=== PATIENT | male | born 1950 ===

== ENCOUNTER 2017-02-09 19:51 | Inpatient (IN) | payer MEDICARE ==
[~2017-02-09] VITALS: Ht 180.3 cm; Wt 63.5 kg
[2017-02-09 20:05] VITALS: BP 108/74
--- NOTE | 2017-02-09 20:05 | NUR ---
RECEIVED PATIENT FROM [facility] VIA AMBULANCE/STRETCHER. PATIENT A/O X4 WITH NO SIGNS OF PAIN, SOB, OR ACUTE DISTRESS. PT ADMIT DX TRANSIENT ISCHEMIC ATTACK. PERTINENT ASSESSMENT COMPLETED. MD JONES AWARE OF PATIENT ARRIVAL TO UNIT. MEDS RECONCILED. VITAL SIGNS STABLE AT START OF SHIFT. CALL LIGHT PLACED WITHIN REACH OF PATIENT. WILL CONTINUE TO MONITOR PATIENT THROUGH SHIFT.
[2017-02-09] MEDS ORDERED: Z GUARD REMEDY PASTE 57 GM TUBE TOP PRN (22:00)
--- NOTE | 2017-02-10 05:40 | NUR ---
PT SLEPT INTERMITTENTLY THROUGH THE SHIFT. HAD PERIODS OF INSOMNIA AND INABILITY TO SLEEP. NO SIGNS OF SOB, ACUTE DISTRESS, OR PAIN. ALL NEEDS ATTENDED TO. VITALS STABLE THROUGH SHIFT. SAFETY MEASURES IMPLEMENTED. CALL LIGHT PLACED WITHIN REACH OF PT. WILL ENDORSE TO DAY SHIFT NURSE.
[2017-02-10 06:46] LABS: HEMOGLOBIN 8.2 g/dL (12.5-16.3); MEAN CORPUSCULAR VOLUME 93.3 fL (73.0-96.2)
[2017-02-10 06:59] LABS: BASOPHILS # (AUTO) 0.1 K/uL (0.0-8.0); BASOPHILS % (AUTO) 1.6 % (0.0-2.0); EOSINOPHILS % (AUTO) 0.9 % (0.0-7.0); HEMATOCRIT 23.8 % (36.7-47.1); LYMPHOCYTES # (AUTO) 0.8 K/uL (20.0-40.0); LYMPHOCYTES % (AUTO) 20.2 % (20.5-51.5); MEAN CORPUSCULAR HEMOGLOBIN 32.4 uug (23.8-33.4); MEAN CORPUSCULAR HGB CONC 35 g/dL (32.5-36.3); MONOCYTES # (AUTO) 0.2 K/uL (2.0-10.0); MONOCYTES % (AUTO) 4.1 % (0.0-11.0); NEUTROPHILS % (AUTO) 73.2 % (38.5-71.5); RED BLOOD CELL COUNT(AUTO) 2.55 MIL/uL (4.06-5.63); WHITE BLOOD COUNT (AUTO) 4.1 K/uL (3.6-10.2)
[2017-02-10 07:06] LABS: PLATELET COUNT (AUTO) 40 K/uL (152-348)
[2017-02-10 08:14] LABS: BAND % (MANUAL) 6 % (0-10); BASOPHILS % (MANUAL) 4 % (0-2); EOSINOPHILS % (MANUAL) 1 % (0-8); LYMPHOCYTES % (MANUAL) 21 % (20-40); METAMYELOCYTES % 7 % (0-1); MONOCYTES % (MANUAL) 2 % (2-10); MYELOCYTES % 2 % (0-0); NEUTROPHILS % (MANUAL) 52 % (42-75)
[2017-02-10 08:22] LABS: BLASTS, MANUAL % 5 % (0-0)
[2017-02-10 08:33] LABS: CREATININE 1.6 mg/dL (0.6-1.3); MAGNESIUM 2.2 mg/dL (1.8-2.4); PHOSPHOROUS 4.7 mg/dL (2.5-4.9); POTASSIUM 4.9 mmol/L (3.5-5.1)
[2017-02-10] MEDS ORDERED: PRAMIPEXOLE 0.25 MG TABLET PO SCH ×3 (09:00→13:00)
[2017-02-10] MEDS ORDERED: GABAPENTIN 100 MG CAPSULE PO SCH ×3 (09:00→21:00)
[2017-02-10] MEDS ORDERED: METOPROLOL SUCCINATE XL 25 MG TAB.SR.24H PO SCH ×2 (09:00)
[2017-02-10] MEDS ORDERED: CARBIDOPA/LEVODOPA 25-100MG TABLET PO SCH (09:00)
[2017-02-10] MEDS ORDERED: ENTACAPONE 200 MG TABLET PO SCH (09:00)
[2017-02-10] MEDS ORDERED: FOLIC ACID 1 MG TABLET PO SCH (09:00)
[2017-02-10] MEDS: ASPIRIN EC 81 MG TABLET.DR PO SCH (09:00)
[2017-02-10] MEDS ORDERED: CHOLECALCIFEROL 1,000 UNIT TABLET PO SCH (09:00)
[2017-02-10 09:28] VITALS: BP 103/63
[2017-02-10] MEDS ORDERED: MELA5TAB PO (09:51)
[2017-02-10] MEDS ORDERED: MIRT15TA PO (09:51)
[2017-02-10] MEDS ORDERED: CARB-93 PO ×2 (09:51)
[2017-02-10] MEDS ORDERED: GABA-532 PO ×2 (09:51)
[2017-02-10] MEDS ORDERED: ATOR10TA PO (09:51)
[2017-02-10] MEDS ORDERED: FEBU40TA PO (09:51)
[2017-02-10] MEDS ORDERED: FOLI1TAB16 PO (09:51)
[2017-02-10] MEDS ORDERED: PRAM0.253 PO (09:51)
[2017-02-10] MEDS ORDERED: CHOL10002 PO (09:51)
[2017-02-10] MEDS ORDERED: METO50TA7 PO (09:51)
[2017-02-10] MEDS ORDERED: RUXO5TAB PO (09:51)
[2017-02-10] MEDS ORDERED: ENTA200T PO (09:51)
[2017-02-10] MEDS ORDERED: ASPI-605 PO (09:51)
[2017-02-10] MEDS ORDERED: [UNRECOGNIZED DRUG - CODE] PO (09:51)
[2017-02-10] MEDS ORDERED: CARB-95 PO (09:56)
[2017-02-10] MEDS ORDERED: ATORVASTATIN 10 MG TABLET PO PRN (10:00)
[2017-02-10] MEDS: METOPROLOL SUCCINATE XL 50 MG TAB.SR.24H PO SCH (10:11)
[2017-02-10] MEDS: CHOLECALCIFEROL 1,000 UNIT TABLET PO SCH (10:23)
[2017-02-10] MEDS: FOLIC ACID 1 MG TABLET PO SCH (10:23)
[2017-02-10] MEDS: ENTACAPONE 200 MG TABLET PO SCH ×3 (10:23→16:05)
[2017-02-10] MEDS: CARBIDOPA/LEVODOPA 25-100MG TABLET PO SCH ×3 (10:25→16:06)
[2017-02-10] MEDS: GABAPENTIN 100 MG CAPSULE PO SCH ×2 (10:25→20:28)
[2017-02-10] MEDS ORDERED: PRAM0.75 PO (10:50)
[2017-02-10] MEDS: PRAMIPEXOLE 0.25 MG TABLET PO SCH ×3 (11:04→16:05)
--- NOTE | 2017-02-10 13:22 | NUR ---
pt seen on rounding. pt has very specific meds taken at very specific times. pt had low bp. witheld all bp medications. pt tolerates room air. pt had no signs of aspirations when taking drugs. pt continues to be alert and oriented. pt is mod to min assist on tranfers with unsteady gait. pt uses urinal to void. pt had home medications sent to pharmacy. pt instructed to bring home medication not available in pharmacy. pt felt weak during lunchtime assessed bp. pt had decreased bp on the 80s, encouraged pt to drink fluids. will reasssess
--- NOTE | 2017-02-10 18:32 | NUR ---
pt has list of medications placed on chart. pharmacy has a copy. pt instructed to bring home med from home. pt understands. pt pillboxes sent to pharmacy. pt stable throughout the day. no aspirations noted. pt had low blood pressure but no sob or distress noted. pt sat on wheelchair interminently. will endorse to [facility] shift [facility] nurse.
[2017-02-10] MEDS: CARBIDOPA/LEVODOPA CR 25-100MG TABLET.SA PO SCH (20:27)
[2017-02-10] MEDS: MELATONIN 3 MG TABLET PO SCH (20:27)
[2017-02-10] MEDS: ATORVASTATIN 10 MG TABLET PO SCH (20:27)
[2017-02-10] MEDS: MIRTAZAPINE 15 MG TABLET PO SCH (20:28)
[2017-02-10] MEDS ORDERED: MIRTAZAPINE 15 MG TABLET PO SCH ×2 (21:00)
[2017-02-10] MEDS ORDERED: MELATONIN 3 MG TABLET PO SCH (21:00)
[2017-02-10] MEDS ORDERED: CARBIDOPA/LEVODOPA CR 25-100MG TABLET.SA PO SCH (21:00)
--- NOTE | 2017-02-10 22:21 | NUR ---
Pt sitting on his wheelchair but assisted him back to bed. Unsteady gait. AAO x4. No acute distress noted. No c/o pain or discomfort. Dr. Forman talked to the patient. Vital signs stable. Meds given per MD's order. Safety measures maintained. Call light and personal belongings within reach. Will continue to monitor.
--- NOTE | 2017-02-11 05:42 | NUR ---
Pt slept intermittently at night. Assisted to the bathroom as needed. Able to make needs known. All needs attended to promptly. Will endorse to day shift RN. Continue to monitor.
[2017-02-11 07:40] VITALS: BP 116/66
[2017-02-11] MEDS: GABAPENTIN 100 MG CAPSULE PO SCH ×2 (07:41→21:29)
[2017-02-11] MEDS: ENTACAPONE 200 MG TABLET PO SCH ×3 (07:42→16:45)
[2017-02-11] MEDS: CHOLECALCIFEROL 1,000 UNIT TABLET PO SCH (07:42)
[2017-02-11] MEDS: METOPROLOL SUCCINATE XL 50 MG TAB.SR.24H PO SCH (07:42)
[2017-02-11] MEDS: FOLIC ACID 1 MG TABLET PO SCH (07:42)
[2017-02-11] MEDS: CARBIDOPA/LEVODOPA 25-100MG TABLET PO SCH ×3 (07:42→16:45)
--- NOTE | 2017-02-11 08:55 | NUR ---
pt seen on rounding. pt continues to have vitals within normal limits. pt used urinal with assist to void. pt had bm yesterday per report . pt took meds one by one whole. pt complains of no pain. pt states that he cant control his bladder without meds. will notify . asked about UROLIC medicine from home if it was brought to the hospital. pt states that he did. will follow up
[2017-02-11] MEDS: PRAMIPEXOLE 0.25 MG TABLET PO SCH ×3 (09:00→16:45)
[2017-02-11] MEDS ORDERED: ASPIRIN EC 81 MG TABLET.DR PO SCH (09:00)
--- NOTE | 2017-02-11 12:09 | NUR ---
pt seen by child care education coordinator to assist with toileting. child care education coordinator states that pt has suicidal thoughts, saying that he wanted to commit suicide. pt has possible thoughts of hurting himself. will recommend a psych eval
--- NOTE | 2017-02-11 18:37 | NUR ---
pt stable throughout the day. no sob noted. pt assisted as needed. pt seen by md cornejo. no new orders. pt had Urolic acid sent to [facility] pharmacy said they will call doctor if md wants to continue meds. will endorse to shift superintendent nurse.
--- NOTE | 2017-02-11 19:45 | NUR ---
Pt sitting on his wheelchair and talking on the phone. AAO x4. No acute distress noted. No c/o pain or discomfort. No suicidal ideation at this time. Pt seen by Dr. Denny. New order for psych consult from Dr. Denny regarding patient stating suicidal ideation from day shift. Non- productive cough noted. Safety measures maintained. Call light and personal belongings within reach. Will continue to monitor.
[2017-02-11] MEDS: CARBIDOPA/LEVODOPA CR 25-100MG TABLET.SA PO SCH (21:28)
[2017-02-11] MEDS: MIRTAZAPINE 15 MG TABLET PO SCH (21:28)
[2017-02-11] MEDS: MELATONIN 3 MG TABLET PO SCH (21:29)
[2017-02-11] MEDS: PATIENT MAY USE OWN MED- MD OK PO SCH (21:31)
[2017-02-11 22:04] VITALS: BP 95/62
--- NOTE | 2017-02-12 05:54 | NUR ---
Pt slept intermittently at night but slept better than the other night. Stable t/o the shift. No suicidal ideation t/o the shift. Meds given per MD's order. All needs attended to promptly and assisted to the bathroom as needed. Will endorse to day shift RN. Continue to monitor.
[2017-02-12 07:08] VITALS: BP 104/58
[2017-02-12] MEDS: METOPROLOL SUCCINATE XL 50 MG TAB.SR.24H PO SCH (09:00)
[2017-02-12] MEDS: PRAMIPEXOLE 0.25 MG TABLET PO SCH ×3 (09:55→17:58)
[2017-02-12] MEDS: GABAPENTIN 100 MG CAPSULE PO SCH ×2 (09:57→21:49)
[2017-02-12] MEDS: FOLIC ACID 1 MG TABLET PO SCH (09:58)
[2017-02-12] MEDS: CHOLECALCIFEROL 1,000 UNIT TABLET PO SCH (09:58)
[2017-02-12] MEDS: CARBIDOPA/LEVODOPA 25-100MG TABLET PO SCH ×3 (09:59→17:59)
[2017-02-12] MEDS: ENTACAPONE 200 MG TABLET PO SCH ×3 (09:59→17:59)
[2017-02-12] MEDS: PATIENT MAY USE OWN MED- MD OK PO SCH ×4 (10:01→17:59)
[2017-02-12] MEDS: ASPIRIN EC 81 MG TABLET.DR PO SCH (10:17)
--- NOTE | 2017-02-12 14:16 | NUR ---
INTERDISCIPLINARY TEAM CONFERENCE
--- NOTE | 2017-02-12 19:24 | NUR ---
Pt visited by caregiver Halie, and seen by . Medication times revised. Psych evaluation order placed, and hiro expected tomorrow afternoon following Pt's 9am appointment Addendum: 02/12/17 at 1929 by DEEJAY CONNOR RN Dr. Soares contacted, and confirmed to visit Pt tomorrow for psych evaluation. Will endorse to on coming gluing machine operator electronic and continue to monitor. Call light within reach.
--- NOTE | 2017-02-12 19:30 | NUR ---
Received patient in bed. Alert and verbally responsive. Able to make needs known. Denies any pain and discomfort at this time. No acute distress. No SOB. Kept clean and dry. All needs attended to promptly. Call light within reach. Will continue to monitor.
[2017-02-12 20:45] VITALS: BP 95/58
[2017-02-12] MEDS: ATORVASTATIN 10 MG TABLET PO SCH (21:49)
[2017-02-12] MEDS: MIRTAZAPINE 15 MG TABLET PO SCH (21:50)
[2017-02-12] MEDS: MELATONIN 3 MG TABLET PO SCH (21:51)
[2017-02-12] MEDS: CARBIDOPA/LEVODOPA CR 25-100MG TABLET.SA PO SCH (21:51)
[2017-02-13] MEDS: CARBIDOPA/LEVODOPA 25-100MG TABLET PO SCH ×3 (06:52→17:05)
--- NOTE | 2017-02-13 07:00 | NUR ---
Patient slept comfortably throughout the night. No c/o pain and discomfort. No acute distress. No SOB. Kept clean and dry. All needs attended to promptly. Call light within reach. Will continue to monitor.
[2017-02-13 08:01] VITALS: BP 138/78
[2017-02-13] MEDS: PATIENT MAY USE OWN MED- MD OK PO SCH ×2 (08:03→08:04)
[2017-02-13] MEDS: FOLIC ACID 1 MG TABLET PO SCH (08:04)
[2017-02-13] MEDS: ENTACAPONE 200 MG TABLET PO SCH ×3 (08:05→17:05)
[2017-02-13] MEDS: METOPROLOL SUCCINATE XL 50 MG TAB.SR.24H PO SCH (08:05)
[2017-02-13] MEDS: CHOLECALCIFEROL 1,000 UNIT TABLET PO SCH (08:05)
[2017-02-13] MEDS: PRAMIPEXOLE 0.25 MG TABLET PO SCH ×3 (08:05→17:05)
[2017-02-13] MEDS: GABAPENTIN 100 MG CAPSULE PO SCH ×2 (08:06→21:04)
--- NOTE | 2017-02-13 09:00 | NUR ---
SBAR report received near bedside, board updated. Pt assessed to be in no acute distress, no pain and no SOB. Pt reports having slept well last night. Pt assisted to bathroom, voiding x1, and helped to get dressed for anticipated machine operator picker by Jen Caruso for Hematology appointment. Pt compliant with all routine morning medications. Pt escorted safely, with personal walker to private car with copies of out on pass permit, updated medical information, and authorization of disclosure of health information from doctor appointment. Will follow up.
--- NOTE | 2017-02-13 11:11 | NUR ---
Pt has returned safely from doctor appointment, related notes will be forwarded to MD upon arrival and placed in chart.
[2017-02-13 19:00] VITALS: BP 97/64
--- NOTE | 2017-02-13 19:08 | NUR ---
Pt new order received to change at home medication Jakafi from BID to once daily at 1300, and to fax most recent CBC by 02/18/[address] Diamond at [phone] for follow up. Pt requesting time between parkinsons medications and meals. All safety and comfort measures met at this time. Call light within reach. Will continue to monitor and endorse to security shift manager.
--- NOTE | 2017-02-13 20:00 | NUR ---
Received pt lying on bed comfortably alert and awake. No acute distress noted. No complaints of pain or discomfort. Breathing even and unlabored with normal respirations. Safety and fall precautions observed and maintained. Encouraged pt to call if assistance is needed. Call light placed within reach. All needs attended.
[2017-02-13] MEDS: MELATONIN 3 MG TABLET PO SCH (21:04)
[2017-02-13] MEDS: CARBIDOPA/LEVODOPA CR 25-100MG TABLET.SA PO SCH (21:04)
--- NOTE | 2017-02-14 05:30 | NUR ---
pt slept well throughout the shift. No apparent distress noted. Denies pain. No SOB noted. Kept clean, dry and comfortable. Call light within reach. All needs attended.
[2017-02-14] MEDS: CARBIDOPA/LEVODOPA 25-100MG TABLET PO SCH ×3 (06:20→17:11)
[2017-02-14 08:37] VITALS: BP 99/62
[2017-02-14] MEDS: PATIENT MAY USE OWN MED- MD OK PO SCH ×3 (10:02→12:46)
[2017-02-14] MEDS: ENTACAPONE 200 MG TABLET PO SCH ×3 (10:03→17:13)
[2017-02-14] MEDS: GABAPENTIN 100 MG CAPSULE PO SCH ×2 (10:03→21:37)
[2017-02-14] MEDS: FOLIC ACID 1 MG TABLET PO SCH (10:03)
[2017-02-14] MEDS: CHOLECALCIFEROL 1,000 UNIT TABLET PO SCH (10:03)
[2017-02-14] MEDS: PRAMIPEXOLE 0.25 MG TABLET PO SCH ×3 (10:04→17:11)
[2017-02-14] MEDS: METOPROLOL SUCCINATE XL 50 MG TAB.SR.24H PO SCH (10:04)
[2017-02-14] MEDS: ASPIRIN EC 81 MG TABLET.DR PO SCH (10:19)
--- NOTE | 2017-02-14 11:00 | NUR ---
i agree Addendum: 02/14/17 at 1101 by MANDY LOPEZ OT Amended: Links added.
--- NOTE | 2017-02-14 11:02 | NUR ---
i agree Addendum: 02/14/17 at 1102 by MANDY LOPEZ OT Amended: Links added.
[2017-02-14] MEDS ORDERED: LACTULOSE 20 G/30 ML LIQUID UDC PO PRN (15:15)
--- NOTE | 2017-02-14 15:29 | NUR ---
Received an order from Dr. Hartman for Lactulose 15ml Q6hrs PRN. Order carried out and patient made aware.
[2017-02-14 20:26] VITALS: BP 100/59
[2017-02-14] MEDS: CARBIDOPA/LEVODOPA CR 25-100MG TABLET.SA PO SCH (21:37)
[2017-02-14] MEDS: MELATONIN 3 MG TABLET PO SCH (21:37)
[2017-02-14] MEDS: MIRTAZAPINE 15 MG TABLET PO SCH (21:37)
[2017-02-14] MEDS: ATORVASTATIN 10 MG TABLET PO SCH (21:39)
--- NOTE | 2017-02-15 01:00 | NUR ---
pt seen on rounding. pt continues to have slowed speech. no signs of stroke. pt assisted to get up on bed. pt continues to be min assist and needs extra time. pt given restoril. pt slept after being given restoril. pt had coughed interminently. will continue to monitor.
--- NOTE | 2017-02-15 06:05 | NUR ---
pt stable throughout the day. no changes. will endorse to second shift supervisor nurse.
[2017-02-15] MEDS: CARBIDOPA/LEVODOPA 25-100MG TABLET PO SCH ×3 (06:32→17:53)
--- NOTE | 2017-02-15 07:41 | NUR ---
Received patient awake, alert, verbally responsive, not in any form of acute distress. He denies any pain or discomfort at this time. Call light placed within reach. Assisted to his needs.
[2017-02-15 08:40] VITALS: BP 100/53
[2017-02-15] MEDS: ENTACAPONE 200 MG TABLET PO SCH ×3 (08:58→17:53)
[2017-02-15] MEDS: CHOLECALCIFEROL 1,000 UNIT TABLET PO SCH (08:58)
[2017-02-15] MEDS: FOLIC ACID 1 MG TABLET PO SCH (08:58)
[2017-02-15] MEDS: PRAMIPEXOLE 0.25 MG TABLET PO SCH ×3 (08:58→17:53)
[2017-02-15] MEDS: GABAPENTIN 100 MG CAPSULE PO SCH ×2 (08:59→21:10)
[2017-02-15] MEDS: PATIENT MAY USE OWN MED- MD OK PO SCH ×2 (08:59→13:02)
[2017-02-15] MEDS: METOPROLOL SUCCINATE XL 50 MG TAB.SR.24H PO SCH (09:00)
[2017-02-15 09:28] LABS: BILIRUBIN,TOTAL 0.6 mg/dL (0.2-1.0); CREATININE 1.8 mg/dL (0.6-1.3); MAGNESIUM 2.3 mg/dL (1.8-2.4); POTASSIUM 4.8 mmol/L (3.5-5.1); TOTAL PROTEIN, SERUM 6.5 g/dL (6.4-8.2)
[2017-02-15 10:46] LABS: BASOPHILS # (AUTO) 0.1 K/uL (0.0-8.0); BASOPHILS % (AUTO) 1.2 % (0.0-2.0); EOSINOPHILS % (AUTO) 0.6 % (0.0-7.0); HEMATOCRIT 23.9 % (36.7-47.1); HEMOGLOBIN 7.9 g/dL (12.5-16.3); LYMPHOCYTES # (AUTO) 0.7 K/uL (20.0-40.0); LYMPHOCYTES % (AUTO) 14.4 % (20.5-51.5); MEAN CORPUSCULAR HEMOGLOBIN 31.4 uug (23.8-33.4); MEAN CORPUSCULAR HGB CONC 33 g/dL (32.5-36.3); MEAN CORPUSCULAR VOLUME 95.2 fL (73.0-96.2); MONOCYTES # (AUTO) 0.1 K/uL (2.0-10.0); MONOCYTES % (AUTO) 2.2 % (0.0-11.0); NEUTROPHILS # (AUTO) 4.1 K/uL (1.8-8.9); NEUTROPHILS % (AUTO) 81.6 % (38.5-71.5); RED BLOOD CELL COUNT(AUTO) 2.52 MIL/uL (4.06-5.63); WHITE BLOOD COUNT (AUTO) 5.1 K/uL (3.6-10.2)
[2017-02-15 10:55] LABS: PLATELET COUNT (AUTO) 54 K/uL (152-348)
[2017-02-15 12:35] LABS: BAND % (MANUAL) 5 % (0-10); EOSINOPHILS % (MANUAL) 3 % (0-8); LYMPHOCYTES % (MANUAL) 18 % (20-40); METAMYELOCYTES % 3 % (0-1); MONOCYTES % (MANUAL) 4 % (2-10); MYELOCYTES % 1 % (0-0); NEUTROPHILS % (MANUAL) 66 % (42-75)
--- NOTE | 2017-02-15 20:30 | NUR ---
Received pt lying on bed asleep with no apparent distress. Denies pain. No SOB noted. All due meds given as ordered and well tolerated. No episodes of anxiety attack. Kept clean, dry and comfortable. Safety and fall precautions observed and maintained. Call light within reach. All needs met.
[2017-02-15] MEDS: MIRTAZAPINE 15 MG TABLET PO SCH (21:10)
[2017-02-15] MEDS: CARBIDOPA/LEVODOPA CR 25-100MG TABLET.SA PO SCH (21:10)
[2017-02-15] MEDS: MELATONIN 3 MG TABLET PO SCH (21:10)
[2017-02-15 21:52] VITALS: BP 109/64
--- NOTE | 2017-02-16 05:41 | NUR ---
Pt slept well throughout the shift with no signs of distress noted. No complaints of pain or discomfort. No anxiety attack noted. Frequently checked for safety. Call light within reach. All needs met.
[2017-02-16] MEDS: CARBIDOPA/LEVODOPA 25-100MG TABLET PO SCH ×3 (06:17→17:42)
[2017-02-16 07:35] VITALS: BP 123/69
[2017-02-16] MEDS: ENTACAPONE 200 MG TABLET PO SCH ×3 (09:35→17:42)
[2017-02-16] MEDS: CHOLECALCIFEROL 1,000 UNIT TABLET PO SCH (09:37)
[2017-02-16] MEDS: METOPROLOL SUCCINATE XL 50 MG TAB.SR.24H PO SCH (09:37)
[2017-02-16] MEDS: PRAMIPEXOLE 0.25 MG TABLET PO SCH ×3 (09:37→17:42)
[2017-02-16] MEDS: GABAPENTIN 100 MG CAPSULE PO SCH ×2 (09:38→21:25)
[2017-02-16] MEDS: FOLIC ACID 1 MG TABLET PO SCH (09:38)
[2017-02-16] MEDS: PATIENT MAY USE OWN MED- MD OK PO SCH ×2 (09:38→12:56)
--- NOTE | 2017-02-16 19:47 | NUR ---
Received pt alert, awake and oriented x3. Able to make needs known. No acute distress noted. No complaints of pain or discomfort. Bed alarm on and in lowest position. Encouraged to call for assistance if needed, verbalize understanding. Call light placed within reach. All needs attended.
[2017-02-16] MEDS: CARBIDOPA/LEVODOPA CR 25-100MG TABLET.SA PO SCH (21:25)
[2017-02-16] MEDS: MIRTAZAPINE 15 MG TABLET PO SCH (21:25)
[2017-02-16] MEDS: MELATONIN 3 MG TABLET PO SCH (21:25)
[2017-02-16 21:45] VITALS: BP 92/57
--- NOTE | 2017-02-17 05:59 | NUR ---
Pt slept well throughout the night. No acute distress noted. No complaints of pain or discomfort. No anxiety attack noted. Assisted to the bathroom as needed. Frequently checked for safety. Bed locked and in lowest position. Bed alarm on. Call light within reach. All needs met.
[2017-02-17] MEDS: GABAPENTIN 100 MG CAPSULE PO SCH ×2 (06:23→20:56)
[2017-02-17] MEDS: ENTACAPONE 200 MG TABLET PO SCH ×3 (06:24→16:47)
[2017-02-17] MEDS: CARBIDOPA/LEVODOPA 25-100MG TABLET PO SCH ×3 (06:24→16:47)
[2017-02-17] MEDS: PRAMIPEXOLE 0.25 MG TABLET PO SCH ×3 (06:24→16:48)
--- NOTE | 2017-02-17 07:30 | NUR ---
Received report from the night nurse. Seen patient upon rounds, awake and alert, verbally reponsive, not in any from of pain and not in distress. Encourage resident to verbalize feelings of anxiety, none noted at this time. Resident is cooperative and in good spirits this morning. Vitals signs within normal limits. Safety measures implemented, bed locked, call light in reach.
[2017-02-17 07:55] VITALS: BP 94/57
[2017-02-17] MEDS: METOPROLOL SUCCINATE XL 50 MG TAB.SR.24H PO SCH (09:00)
[2017-02-17] MEDS: CHOLECALCIFEROL 1,000 UNIT TABLET PO SCH (09:49)
[2017-02-17] MEDS: PATIENT MAY USE OWN MED- MD OK PO SCH ×3 (09:49→13:38)
[2017-02-17] MEDS: FOLIC ACID 1 MG TABLET PO SCH (09:50)
[2017-02-17] MEDS: ASPIRIN EC 81 MG TABLET.DR PO SCH (09:53)
--- NOTE | 2017-02-17 12:30 | NUR ---
Patient seen by Dr. Hartman, no new orders at this time.
--- NOTE | 2017-02-17 16:30 | NUR ---
Patient is up and awake sitting in his wheelchair not in pain, denies any form of discomfort. Encourage patient to verbalize feelings no significant concerns at this time, patient is cooperative with his plan of care. Needs attended promptly, kept clean and dry. Safety measures implemented at all times. Call light placed in reach.
--- NOTE | 2017-02-17 19:30 | NUR ---
Received patient sitting comfortably in the wheelchair. No acute distress noted. A&O x 4. No c/o pain. Safety initiated. Call light within reach. Room is left clutter free. Bed is in low and locked position. Will continue to monitor.
[2017-02-17] MEDS: ATORVASTATIN 10 MG TABLET PO SCH (20:55)
[2017-02-17] MEDS: MIRTAZAPINE 15 MG TABLET PO SCH (20:56)
[2017-02-17] MEDS: MELATONIN 3 MG TABLET PO SCH (20:56)
[2017-02-17] MEDS: CARBIDOPA/LEVODOPA CR 25-100MG TABLET.SA PO SCH (22:34)
--- NOTE | 2017-02-18 05:41 | NUR ---
No changes t/o shift. Patient slept t/o night. No acute distress noted. A&O x 3. Patient was able to ambulate with walker and with nursing home assistant administrator to restroom. Urinating well. BM x 1 last night. Vital signs stable. All meds given as ordered. All needs met.
[2017-02-18] MEDS: CARBIDOPA/LEVODOPA 25-100MG TABLET PO SCH ×3 (06:28→17:45)
[2017-02-18] MEDS: GABAPENTIN 100 MG CAPSULE PO SCH ×2 (06:28→21:51)
[2017-02-18] MEDS: PRAMIPEXOLE 0.25 MG TABLET PO SCH ×3 (06:45→17:44)
[2017-02-18] MEDS: ENTACAPONE 200 MG TABLET PO SCH ×3 (07:32→17:45)
[2017-02-18 08:54] VITALS: BP 110/69
[2017-02-18] MEDS: CHOLECALCIFEROL 1,000 UNIT TABLET PO SCH (08:55)
[2017-02-18] MEDS: FOLIC ACID 1 MG TABLET PO SCH (08:56)
[2017-02-18] MEDS: METOPROLOL SUCCINATE XL 50 MG TAB.SR.24H PO SCH (08:56)
[2017-02-18] MEDS: PATIENT MAY USE OWN MED- MD OK PO SCH ×2 (08:56→11:15)
--- NOTE | 2017-02-18 11:42 | NUR ---
OUT ON PASS NOTE LEFT WITH CAREGIVER TO GO TO PSYCHOTHERAPY APPT. ASSIST TO CAR BY PT. AFTERNOON MEDS GIVEN. STATES HE WILL BE BACK BEFORE 1530
--- NOTE | 2017-02-18 17:22 | NUR ---
Patient claims he prefers to receive vaccines with primary physician
--- NOTE | 2017-02-18 19:25 | NUR ---
Received pt in, AAO x 4. Family member at bedside. Verbally responsive and able to make needs known. Denies pain or discomfort at this time. No acute distress noted. Call light and personal belongings within reach. All safety measures and fall precautions maintained. Will continue to monitor.
[2017-02-18] MEDS: MIRTAZAPINE 15 MG TABLET PO SCH (21:50)
[2017-02-18] MEDS: CARBIDOPA/LEVODOPA CR 25-100MG TABLET.SA PO SCH (21:50)
[2017-02-18 21:51] VITALS: BP 109/69
[2017-02-18] MEDS: MELATONIN 3 MG TABLET PO SCH (21:51)
--- NOTE | 2017-02-19 05:52 | NUR ---
Pt slept comfortably throughout the shift. All needs anticipated and met accordingly. All due medications given as ordered by MD, well tolerated. Kept clean, dry and comfortable. Vitals WNL. No acute distress noted. No complaints of pain or discomfort throughout shift. All safety measures and fall precautions maintained. Call light and all personal belongings within reach. Will continue to monitor. Will endorse to AM shift.
[2017-02-19] MEDS: CARBIDOPA/LEVODOPA 25-100MG TABLET PO SCH ×3 (06:19→17:14)
[2017-02-19] MEDS: ENTACAPONE 200 MG TABLET PO SCH ×3 (06:19→17:13)
[2017-02-19] MEDS: GABAPENTIN 100 MG CAPSULE PO SCH ×2 (06:19→21:46)
[2017-02-19] MEDS: PRAMIPEXOLE 0.25 MG TABLET PO SCH ×3 (06:19→17:14)
[2017-02-19 08:00] VITALS: BP 97/57
[2017-02-19] MEDS: ASPIRIN EC 81 MG TABLET.DR PO SCH (08:49)
[2017-02-19] MEDS: CHOLECALCIFEROL 1,000 UNIT TABLET PO SCH (08:49)
[2017-02-19] MEDS: FOLIC ACID 1 MG TABLET PO SCH (08:49)
[2017-02-19] MEDS: METOPROLOL SUCCINATE XL 50 MG TAB.SR.24H PO SCH (08:51)
[2017-02-19] MEDS: PATIENT MAY USE OWN MED- MD OK PO SCH ×4 (08:56→13:00)
--- NOTE | 2017-02-19 15:29 | NUR ---
Interdisciplinary Team Conference
--- NOTE | 2017-02-19 17:55 | NUR ---
D/C NOTE ORDER GIVEN TO D/C PT BY HIS REQUEST
--- NOTE | 2017-02-19 19:35 | NUR ---
Received pt in bed, AAO x 3 watching television. No acute distress noted. Verbally responsive and able to make needs known. Denies pain or discomfort at this time. All safety measures and fall precautions maintained. Call light within reach. Will continue to monitor.
[2017-02-19 21:11] VITALS: BP 101/67
[2017-02-19] MEDS: MIRTAZAPINE 15 MG TABLET PO SCH (21:46)
[2017-02-19] MEDS: CARBIDOPA/LEVODOPA CR 25-100MG TABLET.SA PO SCH (21:46)
[2017-02-19] MEDS: MELATONIN 3 MG TABLET PO SCH (21:48)
[2017-02-19] MEDS: ATORVASTATIN 10 MG TABLET PO SCH (21:48)
[2017-02-20] MEDS: GABAPENTIN 100 MG CAPSULE PO SCH (06:36)
[2017-02-20] MEDS: PRAMIPEXOLE 0.25 MG TABLET PO SCH (06:36)
[2017-02-20] MEDS: ENTACAPONE 200 MG TABLET PO SCH (06:36)
[2017-02-20] MEDS: CARBIDOPA/LEVODOPA 25-100MG TABLET PO SCH (06:36)
[2017-02-20 07:55] VITALS: BP 104/62
--- NOTE | 2017-02-20 07:55 | NUR ---
PATIENT NOTED LAYING IN BED, NO COMPLAINTS OF PAIN, NO SIGNS OF DISTRESS, STATES HE WANTS TO GO HOME, PLANNED DISCHARGE IN PLACE, CALL IGHT IN REACH, BED LOCKED AND IN LOWEST POSITION
--- NOTE | 2017-02-20 08:18 | NUR ---
I agree Addendum: 02/20/17 at 0818 by DAVE VARELA OT Amended: Links added.
--- NOTE | 2017-02-20 08:18 | NUR ---
I agree Addendum: 02/20/17 at 0819 by DAVE VARELA OT Amended: Links added.
--- NOTE | 2017-02-20 08:19 | NUR ---
I agree Addendum: 02/20/17 at 0820 by DAVE VARELA OT Amended: Links added.
[2017-02-20 08:32] VITALS: BP 104/62
[2017-02-20] MEDS: CHOLECALCIFEROL 1,000 UNIT TABLET PO SCH (08:32)
[2017-02-20] MEDS: METOPROLOL SUCCINATE XL 50 MG TAB.SR.24H PO SCH (08:32)
[2017-02-20] MEDS: FOLIC ACID 1 MG TABLET PO SCH (08:32)
[2017-02-20] MEDS: PATIENT MAY USE OWN MED- MD OK PO SCH (08:34)
--- NOTE | 2017-02-20 11:10 | NUR ---
104/62, 98% on room air, 20 respirations, 65 pulse, 97.4 oral temperature, patient discharged home via private car, home health provided via [employer] (PT/OT/NSG). patient assisted to private car via wheelchair and in stable condition, exit care provided, discharge instructions given, medications retrieved from pharmacy and given back to patient, follow up appointment set up by case management with MD Rico 02/20/17 at 1:45 pm, home health agency provided ([facility] [phone])
== END 2017-02-20 11:10 | disposition home health service (06) | DRG 57 ==
PROVIDERS: ADMIT Physical Medicine & Rehabilitation Pain Medicine; ATTEND Physical Medicine & Rehabilitation Pain Medicine
DX: G20 Parkinson's disease (principal); R64 Cachexia; D75.81 Myelofibrosis; Z68.1 Body mass index [BMI] 19.9 or less, adult; D45 Polycythemia vera; Z86.73 Personal history of transient ischemic attack (TIA), and cerebral infarction without residual deficits; G89.29 Other chronic pain; M54.5 Low back pain; I10 Essential (primary) hypertension; F32.9 Major depressive disorder, single episode, unspecified; F41.9 Anxiety disorder, unspecified; I12.9 Hypertensive chronic kidney disease with stage 1 through stage 4 chronic kidney disease, or unspecified chronic kidney disease; N18.9 Chronic kidney disease, unspecified; D64.9 Anemia, unspecified; R53.1 Weakness; Z88.8 Allergy status to other drugs, medicaments and biological substances; Z91.02 Food additives allergy status
CPT/HCPCS: 36415; 83735; 84100; 85025; 92507; 92523; 92526; 97110; 97112; 97116; 97165; 97530; 97535; A4663